=== PATIENT | female | born 1980 | race Two or more races ===

== ENCOUNTER 2021-11-02 02:13 | Observation (INO) | payer MEDICAID ==
[~2021-11-02] VITALS: Ht 160 cm; Wt 73.5 kg
[2021-11-02] MEDS ORDERED: TERBUTALINE SULFATE 1 MG/ML 1ML VIAL SC ONE (03:23)
[2021-11-02] MEDS ORDERED: LACTATED RINGER'S 500 ML IV ONE (03:30)
[2021-11-02] MEDS: TERBUTALINE SULFATE 1 MG/ML 1ML VIAL SC SCH ×2 (03:46→04:02)
[2021-11-02] MEDS ORDERED: PREN-96 OR (04:45)
== END 2021-11-02 05:05 | disposition home or self-care (01) ==
LOC: LDRP 02:13
PROVIDERS: ADMIT Obstetrics & Gynecology; ATTEND Obstetrics & Gynecology
DX: O26.893 Other specified pregnancy related conditions, third trimester (principal); R10.9 Unspecified abdominal pain; O99.891 Other specified diseases and conditions complicating pregnancy; M54.9 Dorsalgia, unspecified; Z3A.34 34 weeks gestation of pregnancy
CPT/HCPCS: 59025; 76815; 76817; 81002; 94760; 96360; 96361; 96372; G0378; J3105